=== PATIENT | male | born 1950 | race African-American/Black ===

== ENCOUNTER 2020-03-31 12:35 | Emergency (ER) | payer MEDICARE, MEDICAID ==
[~2020-03-31] VITALS: Ht 177.8 cm; Wt 88.5 kg
[~2020-03-31 12:35] MED LIST: ALLO100T21 PO; ASPI81EC98 PO; LOSA50TA57 PO; SIMV10TA1 PO; [UNRECOGNIZED DRUG - CODE] IV
[2020-03-31 12:48] VITALS: BP 124/62
--- NOTE | 2020-03-31 12:55 | NUR ---
AMBULATED TO BED 8
--- NOTE | 2020-03-31 13:15 | NUR ---
/o intermittent epistaxis to left nare x month frequency increasing as per pt--no injury or trauma noted
[2020-03-31 14:15] VITALS: BP 140/73
== END 2020-03-31 14:10 | disposition home or self-care (01) ==
LOC: MED 12:35
DX: R04.0 Epistaxis (principal); I10 Essential (primary) hypertension; Z79.82 Long term (current) use of aspirin; Z79.899 Other long term (current) drug therapy
CPT/HCPCS: 99281; 99284